=== PATIENT | female | born 1990 | race Caucasian/White ===

== ENCOUNTER 2023-10-22 05:47 | Observation (INO) | payer MEDICAID ==
[~2023-10-22] VITALS: Ht 172.7 cm; Wt 79.4 kg
[2023-10-22] MEDS ORDERED: LACTATED RINGER'S 1,000 ML IV ONE (06:45)
[2023-10-22] MEDS ORDERED: ceFAZolin 2 GM/D5W100ml 100 ML IV ONE (06:45)
[2023-10-22] MEDS ORDERED: LACTATED RINGER'S 1,000 ML IV SCH (06:45)
[2023-10-22] MEDS ORDERED: BUTORPHANOL TARTRATE 2 MG/1 ML VIAL IM ONE (06:45)
[2023-10-22] MEDS ORDERED: BUTORPHANOL TARTRATE 2 MG/1 ML VIAL IV ONE (07:30)
[2023-10-22 07:51] VITALS: BP 109/65; PULSE 85; RESP 18
[2023-10-22 08:03] LABS: Urine Bacteria NONE SEEN /hpf (None Seen); Urine Blood 3+ /uL (Negative); Urine Budding Yeast LOADED /hpf (None Seen); Urine Clarity CLOUDY (Clear); Urine Color Yellow (Yellow); Urine Mucus FEW (None Seen); Urine Protein, UAD 3+ (Negative); Urine Urobilinogen Normal (Negative); Urine WBC 1731 /hpf (0 - 5); Urine WBC Clumps PRESENT /hpf (None Seen); Urine pH 6.5 (5.0-8.0)
[2023-10-22] MEDS ORDERED: PREN-96 PO (08:25)
[2023-10-22] MEDS ORDERED: CEPH250C PO (08:25)
== END 2023-10-22 10:51 | disposition home or self-care (01) ==
LOC: LDRP 05:47
PROVIDERS: ADMIT Obstetrics & Gynecology; ATTEND Obstetrics & Gynecology
DX: O99.512 Diseases of the respiratory system complicating pregnancy, second trimester (principal); O26.892 Other specified pregnancy related conditions, second trimester; R10.9 Unspecified abdominal pain; R30.9 Painful micturition, unspecified; Z3A.27 27 weeks gestation of pregnancy
CPT/HCPCS: 59025; 81001; 81002; 87086; 94760; 96361; 96365; 96375; G0378; J0595; 87088; 87186; 96360; 96374